=== PATIENT | male | born 1955 | race Two or more races ===

== ENCOUNTER → 2019-03-08 | Day surgery (SDC) | payer BC ==
[~2019-03-08] MED LIST: AMLO5TAB10 PO; FLUT16SP NS; LISI-338 PO; LOVA20TA2 PO; METF500T11 PO; PROPOFOL 40 ML IV ONE; RANI150T2 PO
[2019-03-08] MEDS: IV RINGERS,LACTATED 1000ML 1,000 ML IV SCH (06:32)
[2019-03-08 07:51] VITALS: BP 129/83
== END | disposition home or self-care (01) ==
LOC: ENDOS 06:05
PROVIDERS: ATTEND Internal Medicine Gastroenterology
DX: Z12.11 Encounter for screening for malignant neoplasm of colon (principal); K64.0 First degree hemorrhoids; K57.30 Diverticulosis of large intestine without perforation or abscess without bleeding; Z88.6 Allergy status to analgesic agent; Z86.010 Personal history of colon polyps
CPT/HCPCS: 45378; J2704

== ENCOUNTER 2019-06-13 19:25 | Emergency (ER) | payer BC ==
[~2019-06-13] VITALS: Ht 162.6 cm; Wt 115.5 kg
[~2019-06-13 19:25] MED LIST changes: -PROPOFOL 40 ML IV ONE
--- NOTE | 2019-06-13 19:37 | PHYS DOC ---
Adult General Chief Complaint Chief Complaint: NEURO SYMPTOMS/DEFICITS HPI HPI Patient is a 63 year old male with past medical history significant for hypertension and diabetes who presents secondary to left-sided facial droop. Patient was last known well at midnight last night and woke up with the symptoms that he presents with. His symptoms have not progressed throughout the day. He describes a sensation of mild blurry vision in the left eye and difficulty with closing the left eye and some mild left-sided facial droop. There is been no other numbness tingling or weakness throughout. No difficulty with speech and no headache. Patient has not been sick recently and denies chest pain or shortness of breath. Patient has no numbness or tingling or sensory deficits. Review of Systems Review of Systems All other systems were reviewed and found to be within normal limits, except as documented in this note. Allergies Allergies Allergies Coded Allergies Type Severity Reaction Last Updated Verified codeine Allergy Intermediate 03/08/19 Yes Physical Exam Physical Exam Constitutional: Well developed, well nourished, no acute distress, non-toxic appearance. [] HENT: Normocephalic, atraumatic, bilateral external ears normal, oropharynx moist, no oral exudates, nose normal. [] Eyes: PERRLA, EOMI, conjunctiva normal, no discharge. The left eyelid has mild droop Neck: Normal range of motion, no tenderness, supple, no stridor. [] Cardiovascular:Heart rate regular rhythm, no murmur [] Lungs & Thorax: Bilateral breath sounds clear to auscultation [] Abdomen: Bowel sounds normal, soft, no tenderness, no masses, no pulsatile masses. [] Skin: Warm, dry, no erythema, no rash. [] Back: No tenderness, no CVA tenderness. [] Extremities: No tenderness, no cyanosis, no clubbing, ROM intact, no edema. [] Neurologic: Alert and oriented X 3, normal motor function, normal sensory function, there is mild left-sided facial droop that affects the forehead, cheek, mouth. No other focal deficits are noted Psychologic: Affect normal, judgement normal, mood normal. [] Current Patient Data Lab Values Laboratory Tests Test 06/13/19 19:35 White Blood Count 9.2 x10^3/uL (4.0-11.0) Red Blood Count 5.25 x10^6/uL (4.30-5.70) Hemoglobin 16.4 g/dL (13.0-17.5) Hematocrit 47.1 % (39.0-53.0) Mean Corpuscular Volume 90 fL (79-100) Mean Corpuscular Hemoglobin 31 pg (25-35) Mean Corpuscular Hemoglobin Concent 35 g/dL (31-37) Red Cell Distribution Width 13.3 % (11.5-14.5) Platelet Count 295 x10^3/uL (140-400) Neutrophils (%) (Auto) 60 % (31-73) Lymphocytes (%) (Auto) 22 % (24-48) L Monocytes (%) (Auto) 11 % (0-9) H Eosinophils (%) (Auto) 6 % (0-3) H Basophils (%) (Auto) 1 % (0-3) Neutrophils # (Auto) 5.5 x10^3/uL (1.8-7.7) Lymphocytes # (Auto) 2.0 x10^3/uL (1.0-4.8) Monocytes # (Auto) 1.0 x10^3/uL (0.0-1.1) Eosinophils # (Auto) 0.6 x10^3/uL (0.0-0.7) Basophils # (Auto) 0.1 x10^3/uL (0.0-0.2) Prothrombin Time 12.6 SEC (11.7-14.0) Prothrombin Time INR 1.0 (0.8-1.1) Activated Partial Thromboplast Time 28 SEC (24-38) Sodium Level 142 mmol/L (136-145) Potassium Level 4.1 mmol/L (3.5-5.1) Chloride Level 103 mmol/L (98-107) Carbon Dioxide Level 31 mmol/L (21-32) Anion Gap 8 (6-14) Blood Urea Nitrogen 16 mg/dL (8-26) Creatinine 1.2 mg/dL (0.7-1.3) Estimated GFR (Cockcroft-Gault) 61.6 Glucose Level 136 mg/dL (70-99) H Calcium Level 9.5 mg/dL (8.5-10.1) Laboratory Tests 06/13/19 19:35 Laboratory Tests 06/13/19 19:35 EKG EKG EKG shows a sinus rhythm with a heart rate of 85, no ST elevation and right bundle branch block [] Radiology/Procedures Radiology/Procedures Exam: CT head INDICATION: Left-sided facial droop TECHNIQUE: Sequential axial images through the head were obtained without the administration of IV contrast. Comparisons: None FINDINGS: No focal parenchymal lesion or hemorrhage is identified. There is no midline shift or sulcal effacement. No acute vascular territory infarction is identified. Wang-white distinction is preserved. The ventricular system is within normal limits without compression hydrocephalus. The basal cisterns are well maintained. The visualized portions of the paranasal sinuses and mastoid air cells are well-pneumatized. No acute fractures. IMPRESSION: No acute intracranial abnormality.[] Course & Med Decision Making Course & Med Decision Making Pertinent Labs and Imaging studies reviewed. (See chart for details) 193: This patient is seen for left-sided facial droop. Symptoms are more consistent with Angela's palsy, however given his history I will go ahead and get a CT scan of his head and check basic labs. If work-up is unremarkable will treat him for Angela's palsy. Dragon Disclaimer Dragon Disclaimer This electronic medical record was generated, in whole or in part, using a voice recognition dictation system. Departure Departure Impression: Primary Impression: Angela's palsy Disposition: 01 HOME, SELF-CARE Condition: STABLE Referrals: AUBREE OCAMPO (PCP) Follow up as needed. Patient Instructions: Angela's Palsy Scripts Prednisone (PREDNISONE) 20 Mg Tablet 3 TAB PO DAILY for 7 Days, #21 TAB Prov: ABBEY RODRIGUEZ DO 06/13/19 ABBEY RODRIGUEZ DO Jun 13, 2019 19:37
[2019-06-13 19:47] LABS: BASO # 0.1 x10^3/uL (0.0-0.2); BASO % 1 % (0-3); EOS # 0.6 x10^3/uL (0.0-0.7); EOS % 6 % (0-3); HEMATOCRIT 47.1 % (39.0-53.0); HEMOGLOBIN 16.4 g/dL (13.0-17.5); LYMPH % 22 % (24-48); MEAN CORPUSCULAR HEMOGLOBIN 31 pg (25-35); MEAN CORPUSCULAR HGB CONC 35 g/dL (31-37); MEAN CORPUSCULAR VOLUME 90 fL (79-100); MONO % 11 % (0-9); NEUT # 5.5 x10^3/uL (1.8-7.7); NEUT % 60 % (31-73); PLATELET COUNT 295 x10^3/uL (140-400); RED BLOOD COUNT 5.25 x10^6/uL (4.30-5.70); RED CELL DISTRIBUTION WIDTH 13.3 % (11.5-14.5); WHITE BLOOD COUNT 9.2 x10^3/uL (4.0-11.0)
[2019-06-13 19:54] LABS: PROTHROMBIN TIME PATIENT 12.6 SEC (11.7-14.0)
[2019-06-13 19:58] LABS: CALCIUM 9.5 mg/dL (8.5-10.1); CREATININE 1.2 mg/dL (0.7-1.3); GFR 61.6; POTASSIUM 4.1 mmol/L (3.5-5.1)
--- NOTE | 2019-06-13 20:00 | RAD ---
Exam: CT head INDICATION: Left-sided facial droop TECHNIQUE: Sequential axial images through the head were obtained without the administration of IV contrast. Comparisons: None FINDINGS: No focal parenchymal lesion or hemorrhage is identified. There is no midline shift or sulcal effacement. No acute vascular territory infarction is identified. Wang-white distinction is preserved. The ventricular system is within normal limits without compression hydrocephalus. The basal cisterns are well maintained. The visualized portions of the paranasal sinuses and mastoid air cells are well-pneumatized. No acute fractures. IMPRESSION: No acute intracranial abnormality. Exposure: One or more of the following in the visualized dose reduction techniques were utilized for this examination: 1. Automated exposure control 2. Adjustment of the MA and/or KV according to patient size Use of iterative of reconstructive technique Electronically signed by: Ha Seals MD (06/13/2019 7:58 PM) [id number]
[2019-06-13] MEDS ORDERED: PRED20TA PO (20:09)
[2019-06-13] MEDS ORDERED: predniSONE 20 MG TABLET PO ONE (20:15)
[2019-06-13 20:35] VITALS: BP 150/85
--- NOTE | 2019-06-14 06:19 | EKG ---
[facility] [address] [place] [address] Test Date: 2019-06-13 Test Time: 19:40:35 Pat Name: MERRY KEYS Department: Room: Gender: M Preventive Medicine Officer: : 1955 Requested By: ABBEY RODRIGUEZ Order Number: [id number] Reading MD: Measurements Intervals [place] Rate: 85 P: 38 ME: 130 QRS: -47 QRSD: 126 T: 18 QT: 390 QTc: 464 Interpretive Statements SINUS RHYTHM VENTRICULAR PREMATURE COMPLEX(ES) ABNORMAL LEFT AXIS DEVIATION S1,S2,S3 PATTERN LEFT ANTERIOR FASCICULAR BLOCK RIGHT BUNDLE BRANCH BLOCK BIFASCICULAR BLOCK QRS(T) CONTOUR ABNORMALITY CONSIDER ANTEROSEPTAL MYOCARDIAL DAMAGE ABNORMAL ECG RI6.01 No previous ECG available for comparison
== END 2019-06-13 20:45 | disposition home or self-care (01) ==
LOC: ER 19:25
DX: G51.0 Bell's palsy (principal); Z88.5 Allergy status to narcotic agent
CPT/HCPCS: 36415; 70450; 80048; 84484; 85025; 85610; 85730; 93005; 99285; J7512; 82962; 99284

== ENCOUNTER → 2019-10-02 | Outpatient (CLI) | payer BC ==
[~2019-10-02] MED LIST changes: +METF-658 PO; -METF500T11 PO; +PRED20TA PO
--- NOTE | 2019-10-02 09:05 | RAD ---
PQRS Compliance Statement: One or more of the following individualized dose reduction techniques were utilized for this examination: 1. Automated exposure control 2. Adjustment of the mA and/or kV according to patient size 3. Use of iterative reconstruction technique CT CHEST HIGH RESOLUTION WO 10/02/2019 8:30 AM Indication: Interstitial lung disease COMPARISON: None available. TECHNIQUE: Multiple axial CT images of the chest were obtained without intravenous contrast utilizing high-resolution protocol. Coronal and sagittal reformats are provided. FINDINGS: Thyroid gland is normal in appearance. No pathologically enlarged thoracic lymph nodes are identified. Calcified left hilar lymph node is identified. Heart size within normal limits. Thoracic aorta is normal in course and caliber. Minor coronary artery vascular calcifications are identified. No significant pericardial effusion. Thoracic esophagus is normal in appearance. Mild hepatic steatosis. 4 mm calcified granulomas noted at the left lung base. No suspicious solid noncalcified pulmonary nodules. No pleural effusions, pulmonary vascular congestion or pneumothorax. Central airways are clear. No bronchiectasis. No groundglass changes or traction bronchiectasis. No honeycombing is identified. No significant air trapping. IMPRESSION: No CT findings to suggest acute or chronic interstitial lung disease. Electronically signed by: Danielle Hawthorne MD (10/02/2019 9:02 AM) [facility]
== END | disposition home or self-care (01) ==
LOC: CT 08:32
PROVIDERS: ATTEND Internal Medicine Pulmonary Disease
DX: J84.9 Interstitial pulmonary disease, unspecified (principal); J84.10 Pulmonary fibrosis, unspecified; I25.10 Atherosclerotic heart disease of native coronary artery without angina pectoris; K76.0 Fatty (change of) liver, not elsewhere classified; I89.8 Other specified noninfective disorders of lymphatic vessels and lymph nodes
CPT/HCPCS: 71250

== ENCOUNTER 2021-02-07 09:48 | Observation (INO) | payer BC, MEDICARE ==
[~2021-02-07] VITALS: Ht 170.2 cm; Wt 113.9 kg
[~2021-02-07 09:48] MED LIST changes: +AMLO-186 PO; -AMLO5TAB10 PO; -LISI-338 PO; +LISI5TAB15 PO
[2021-02-07] MEDS ORDERED: NITROGLYCERIN SUBLINGUAL 0.4 MG BOTTLE OF 25. SL ONE (10:14)
[2021-02-07] MEDS ORDERED: ASPIRIN CHEWABLE 81 MG TABLET. PO ONE (10:15)
--- NOTE | 2021-02-07 10:27 | RAD ---
XR CHEST 1V CLINICAL INDICATIONS: Chest pain: COMPARISON: July 05, 2012. Findings: No acute lung infiltrate or pleural effusion or pulmonary edema or lung mass or pneumothora x is seen. The heart size, pulmonary vasculature, mediastinum and both topher are stable. IMPRESSION: No acute radiographic abnormality is seen. Electronically signed by: Femi Dhaliwal MD (02/07/2021 10:25 AM) [id number]
[2021-02-07 10:32] LABS: BASO # 0.1 x10^3/uL (0.0-0.2); BASO % 1 % (0-3); EOS # 0.9 x10^3/uL (0.0-0.7); EOS % 11 % (0-3); HEMATOCRIT 45.4 % (39.0-53.0); HEMOGLOBIN 15.4 g/dL (13.0-17.5); LYMPH # 1.4 x10^3/uL (1.0-4.8); LYMPH % 16 % (24-48); MEAN CORPUSCULAR HEMOGLOBIN 31 pg (25-35); MEAN CORPUSCULAR HGB CONC 34 g/dL (31-37); MEAN CORPUSCULAR VOLUME 91 fL (79-100); MONO # 0.8 x10^3/uL (0.0-1.1); MONO % 9 % (0-9); NEUT # 5.3 x10^3/uL (1.8-7.7); NEUT % 63 % (31-73); PLATELET COUNT 321 x10^3/uL (140-400); RED CELL DISTRIBUTION WIDTH 13.1 % (11.5-14.5); WHITE BLOOD COUNT 8.4 x10^3/uL (4.0-11.0)
[2021-02-07 10:48] LABS: CALCIUM 8.8 mg/dL (8.5-10.1); GFR 75.5; POTASSIUM 3.6 mmol/L (3.5-5.1)
--- NOTE | 2021-02-07 10:49 | PHYS DOC ---
Past Medical History Past Medical History: Diabetes-Type II, GERD, High Cholesterol, Hypertension, Other Additional Past Medical Histor: SLEEP APNEA W C PAP,SKIN INFECTION TO FACE. Past Surgical History: Other Additional Past Surgical Histo: L HIP,COLONOSCOPY Smoking Status: Never Smoker Alcohol Use: None General Adult EDM: Chief Complaint: CHEST PAIN HPI: HPI: Patient is a 65 year old male with history of diabetes type 2, hypertension, hyperlipidemia who presents with chest pain that began 20-30 minutes prior to arrival. Patient's describes the pain as low chest pressure 7/10 nonradiating with associated shortness of breath that extends around his chest. Patient has never had pain like this before. He denies headache, weakness, nausea, vomiting, diaphoresis. Patient denies any inciting events. Patient reports he took his medications today. He has no other complaints at this time. Review of Systems: Review of Systems: Constitutional: Denies fever or chills. Respiratory: See HPI Cardiovascular: See HPI GI: See HPI : Denies dysuria or hematuria. Musculoskeletal: Denies back pain or joint pain. Integument: Denies rash or other skin lesions. Neurologic: See HPI Endocrine: Denies polyuria or polydipsia. Psychological: Denies anxiety or depression. Heart Score: C/O Chest Pain: Yes HEART Score for Chest Pain: HEART Score for Chest Pain Response (Comments) Value History Moderately Suspicious 1 ECG Nonspecific Repolarizatio 1 Age >45 - < 65 1 Risk Factors >3 Risk Factors or Hx CAD 2 Troponin < Normal Limit 0 Total 5 Risk Factors: Risk Factors: DM, HTN, HLD, obesity Risk Scores: Score 0 - 3: 2.5% MACE over next 6 weeks - Discharge Home Score 4 - 6: 20.3% MACE over next 6 weeks - Admit for Clinical Observation Score 7 - 10: 72.7% MACE over next 6 weeks - Early Invasive Strategies Current Medications: Current Medications Medications (Trade) Dose Ordered Sig/Connor Start Time Stop Time Status Last Admin Dose Admin Aspirin (Aspirin Chewable) 324 mg 1X ONCE 02/07/21 10:15 02/07/21 10:16 DC 02/07/21 10:15 324 MG Nitroglycerin (Nitrostat) 0.4 mg STK-MED ONCE 02/07/21 10:14 02/07/21 10:15 DC Allergies: Allergies: Allergies Coded Allergies Type Severity Reaction Last Updated Verified codeine Allergy Intermediate 03/08/19 Yes Physical Exam: PE: Constitutional: Obese, no acute distress, non-toxic appearance. Neck: Normal range of motion, no tenderness, supple, no stridor, no JVD. Cardiovascular: Heart rate regular rhythm, no obvious murmur. Lungs & Thorax: Bilateral breath sounds clear to auscultation. Abdomen: Protuberant abdomen, bowel sounds normal, soft, no tenderness, no masses, no pulsatile masses. Skin: Warm, dry, no erythema, no rash. Extremities: No tenderness, no cyanosis, no clubbing, ROM intact, no edema. Neurologic: Alert and oriented x4, no focal deficits noted. Current Patient Data: Labs: Laboratory Tests Test 02/07/21 10:25 White Blood Count 8.4 x10^3/uL (4.0-11.0) Red Blood Count 5.00 x10^6/uL (4.30-5.70) Hemoglobin 15.4 g/dL (13.0-17.5) Hematocrit 45.4 % (39.0-53.0) Mean Corpuscular Volume 91 fL (79-100) Mean Corpuscular Hemoglobin 31 pg (25-35) Mean Corpuscular Hemoglobin Concent 34 g/dL (31-37) Red Cell Distribution Width 13.1 % (11.5-14.5) Platelet Count 321 x10^3/uL (140-400) Neutrophils (%) (Auto) 63 % (31-73) Lymphocytes (%) (Auto) 16 % (24-48) L Monocytes (%) (Auto) 9 % (0-9) Eosinophils (%) (Auto) 11 % (0-3) H Basophils (%) (Auto) 1 % (0-3) Neutrophils # (Auto) 5.3 x10^3/uL (1.8-7.7) Lymphocytes # (Auto) 1.4 x10^3/uL (1.0-4.8) Monocytes # (Auto) 0.8 x10^3/uL (0.0-1.1) Eosinophils # (Auto) 0.9 x10^3/uL (0.0-0.7) H Basophils # (Auto) 0.1 x10^3/uL (0.0-0.2) Laboratory Tests 02/07/21 10:25 Vital Signs: Vital Signs Date Time Temp Pulse Resp B/P (MAP) Pulse Ox O2 Delivery O2 Flow Rate FiO2 02/07/21 10:25 106 18 151/76 (101) 98 Room Air 02/07/21 10:07 98.5 98.5 EKG: EKG: EKG Interpreted by Dr. Quintero at 1015: Regular rate and rhythm 95 bpm with no ectopic beats. Q waves on inferior leads. EKG largely unchanged from 06/13/2019. EKG Interpreted by Dr. Quintero at 1053: No change from prior. Radiology/Procedures: Radiology/Procedures: PROCEDURE: PORTABLE CHEST 1V XR CHEST 1V CLINICAL INDICATIONS: Chest pain: COMPARISON: July 05, 2012. Findings: No acute lung infiltrate or pleural effusion or pulmonary edema or lung mass or pneumothorax is seen. The heart size, pulmonary vasculature, mediastinum and both topher are stable. IMPRESSION: No acute radiographic abnormality is seen. Electronically signed by: Femi Dhaliwal MD (02/07/2021 10:25 AM) [id number] Course & Med Decision Making: Course & Med Decision Making Pertinent Labs and Imaging studies reviewed. (See chart for details) Patient work-up will include blood work including serial troponin, EKG, chest x- ray with concern for ACS. Patient work-up largely unremarkable, however with heart score of 5, patient w ill be admitted for observation. Dragon Disclaimer: Dragon Disclaimer: This electronic medical record was generated, in whole or in part, using a voice recognition dictation system. Departure Departure Impression: Primary Impression: Chest pain Qualified Codes: R07.89 - Other chest pain Disposition: ADMITTED INPATIENT Admitting Physician: CHUY Ndiaye) Condition: GUARDED Referrals: PASCUAL HOWARD MD (PCP) HEATH VALERIO Feb 07, 2021 10:49
[2021-02-07 11:00] LABS: ALBUMIN 3.3 g/dL (3.4-5.0); ALBUMIN/GLOBULIN RATIO 0.8 (1.0-1.7); MAGNESIUM 1.9 mg/dL (1.8-2.4); TOTAL BILIRUBIN 0.8 mg/dL (0.2-1.0); TOTAL PROTEIN 7.4 g/dL (6.4-8.2)
--- NOTE | 2021-02-07 11:07 | EKG ---
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
--- NOTE | 2021-02-07 11:08 | EKG ---
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
[2021-02-07 12:11] LABS: BILIRUBIN,URINE NEGATIVE (NEG); CLARITY,URINE CLEAR; COLOR,URINE YELLOW; NITRITE,URINE NEGATIVE (NEG); PROTEIN,URINE NEGATIVE (NEG-TRACE)
[2021-02-07] MEDS ORDERED: MAGNESIUM HYDROXIDE 2,400 MG/30 ML ORAL.SUSP. PO PRN (12:15)
[2021-02-07] MEDS ORDERED: LACTULOSE 20 GM/30 ML SOLUTION. PO PRN (12:15)
[2021-02-07] MEDS ORDERED: ZOLPIDEM 5 MG TABLET. PO PRN (12:15)
[2021-02-07] MEDS ORDERED: ACETAMINOPHEN 325 MG TABLET. PO PRN (12:15)
[2021-02-07] MEDS ORDERED: MORPHINE SULFATE 2 MG/ML INJ. IVP PRN (12:15)
[2021-02-07] MEDS ORDERED: NITROGLYCERIN SUBLINGUAL 0.4 MG BOTTLE OF 25. SL PRN ×2 (12:15)
[2021-02-07] MEDS ORDERED: MAG HYDROX/ALUMINUM HYD/SIMETH 30 ML ORAL.SUSP PO PRN (12:15)
[2021-02-07] MEDS ORDERED: 0.9 % SODIUM CHLORIDE 10 ML DISP.SYRIN. IV PRN (12:15)
[2021-02-07] MEDS ORDERED: ONDANSETRON PF 4 MG/2 ML VIAL. IVP PRN (12:15)
[2021-02-07 12:31] LABS: BACTERIA,URINE 0 /HPF (0-FEW); RBC,URINE 0 /HPF (0-2); WBC,URINE 0 /HPF (0-4)
[2021-02-07 13:45] VITALS: BP 160/89
[2021-02-07] MEDS ORDERED: ENOXAPARIN 40 MG/0.4 ML SYRINGE. SQ SCH (14:00)
--- NOTE | 2021-02-07 14:22 | PDOC2 ---
SANDRA NDIAYE DIRECTOR ADVERTISING 02/07/21 1422: CARDIAC CONSULT DATE OF CONSULT Date of Consult DATE: 02/07/21 TIME: 13:39 REASON FOR CONSULT Reason for Consult: Chest pain REFERRING PHYSICIAN Referring Physician: Caren SOURCE Source: Chart review, Patient HISTORY OF PRESENT ILLNESS HISTORY OF PRESENT ILLNESS This is a pleasant 65 yo male admitted for complains of chest pain. He was doing errands with his daughter when he started having sensation of tightening around his lower chest wrapping around and was difficult to breath in. No fever chills or coughing and actaully did some yardwork a week ago and no complains. No exertional SOA or chest pain and today was the first time he has felt the chest pain. No recent falls or injury. Denies any palpitations. No recent pneumonia and has been vaccinated for covid-19. Denies any CAD, arrhythmias, or VTE. He has not had any stress test in the past. He was given x1 NTG in ER and was better after that. PAST MEDICAL HISTORY Cardiovascular: HTN, Hyperlipidemia Pulmonary: Other (JOANA, uses CPAP) CENTRAL NERVOUS SYSTEM: Other (No pertinent history) GI: Diverticulosis, GERD Heme/Onc: No pertinent hx Hepatobiliary: No pertinent hx Psych: No pertinent hx Musculoskeletal: Osteoarthritis Rheumatologic: No pertinent hx Infectious disease: No pertinent hx ENT: No pertinent hx, Other (OSAGE) Renal/: No pertinent hx Endocrine: Diabetes (2) Dermatology: No pertinent hx PAST SURGICAL HISTORY Past Surgical History: Arthroscopy (left RTC repair, right knee repair), Total hip replacement (left), Other (toed suirgery) FAMILY HISTORY Family History: Coronary Artery Disease (father) SOCIAL HISTORY Smoke: No ALCOHOL: other (binge alcohol use on the weekned) Drugs: None Lives: with Family CURRENT MEDICATIONS CURRENT MEDICATIONS Current Medications Medications (Trade) Dose Ordered Sig/Connor Route PRN Reason Start Time Stop Time Status Last Admin Dose Admin Aspirin (Aspirin Chewable) 324 mg 1X ONCE PO 02/07/21 10:15 02/07/21 10:16 DC 02/07/21 10:15 ALLERGIES ALLERGIES: Coded Allergies: codeine (Verified Allergy, Intermediate, 03/08/19) ROS Review of System 14 point ROS evaluated with pertinent positives noted per HPI PHYSICAL EXAM General: Alert, Oriented X3, Cooperative, No acute distress HEENT: Atraumatic, Mucous membr. moist/pink, Other (OSAGE) Lungs: Clear to auscultation, Normal air movement Heart: Regular rate (SR), Normal S1, Normal S2, No murmurs Abdomen: Soft, No tenderness Extremities: No cyanosis, Other (1+ bilateral LE pitting edema) Skin: No breakdown, No significant lesion Neuro: Normal speech, Sensation intact Psych/Mental Status: Mental status NL, Mood NL MUSCULOSKELETAL: Osteoarthritic changes both hands VITALS/I&O VITALS/I&O: Vital Signs Date Time Temp Pulse Resp B/P (MAP) Pulse Ox O2 Delivery O2 Flow Rate FiO2 02/07/21 12:36 70 15 135/68 (90) 95 Room Air 02/07/21 10:07 98.5 98.5 LABS Lab: Laboratory Tests Test 02/07/21 10:25 02/07/21 11:53 White Blood Count 8.4 x10^3/uL (4.0-11.0) Red Blood Count 5.00 x10^6/uL (4.30-5.70) Hemoglobin 15.4 g/dL (13.0-17.5) Hematocrit 45.4 % (39.0-53.0) Mean Corpuscular Volume 91 fL (79-100) Mean Corpuscular Hemoglobin 31 pg (25-35) Mean Corpuscular Hemoglobin Concent 34 g/dL (31-37) Red Cell Distribution Width 13.1 % (11.5-14.5) Platelet Count 321 x10^3/uL (140-400) Neutrophils (%) (Auto) 63 % (31-73) Lymphocytes (%) (Auto) 16 % (24-48) L Monocytes (%) (Auto) 9 % (0-9) Eosinophils (%) (Auto) 11 % (0-3) H Basophils (%) (Auto) 1 % (0-3) Neutrophils # (Auto) 5.3 x10^3/uL (1.8-7.7) Lymphocytes # (Auto) 1.4 x10^3/uL (1.0-4.8) Monocytes # (Auto) 0.8 x10^3/uL (0.0-1.1) Eosinophils # (Auto) 0.9 x10^3/uL (0.0-0.7) H Basophils # (Auto) 0.1 x10^3/uL (0.0-0.2) Sodium Level 137 mmol/L (136-145) Potassium Level 3.6 mmol/L (3.5-5.1) Chloride Level 103 mmol/L (98-107) Carbon Dioxide Level 25 mmol/L (21-32) Anion Gap 9 (6-14) Blood Urea Nitrogen 11 mg/dL (8-26) Creatinine 1.0 mg/dL (0.7-1.3) Estimated GFR (Cockcroft-Gault) 75.5 BUN/Creatinine Ratio 11 (6-20) Glucose Level 183 mg/dL (70-99) H Calcium Level 8.8 mg/dL (8.5-10.1) Magnesium Level 1.9 mg/dL (1.8-2.4) Total Bilirubin 0.8 mg/dL (0.2-1.0) Aspartate Amino Transferase (AST) 48 U/L (15-37) H Alanine Aminotransferase (ALT) 60 U/L (16-63) Alkaline Phosphatase 115 U/L (46-116) Troponin I High Sensitivity 42 ng/L (4-75) EI-Sdh-V-Type Natriuretic Peptide 40 pg/mL (0-124) Total Protein 7.4 g/dL (6.4-8.2) Albumin 3.3 g/dL (3.4-5.0) L Albumin/Globulin Ratio 0.8 (1.0-1.7) L Lipase 181 U/L (73-393) Urine Collection Type Unknown Urine Color Yellow Urine Clarity Clear Urine pH 6.0 (<5.0-8.0) Urine Specific [place] 1.010 (1.000-1.030) Urine Protein Negative mg/dL (NEG-TRACE) Urine Glucose (UA) Negative mg/dL (NEG) Urine Ketones (Stick) Negative mg/dL (NEG) Urine Blood Negative (NEG) Urine Nitrite Negative (NEG) Urine Bilirubin Negative (NEG) Urine Urobilinogen Dipstick 1.0 mg/dL (0.2 mg/dL) Urine Leukocyte Esterase Negative (NEG) Urine RBC 0 /HPF (0-2) Urine WBC 0 /HPF (0-4) Urine Squamous Epithelial Cells Occ /LPF Urine Bacteria 0 /HPF (0-FEW) Laboratory Tests 02/07/21 10:25 Laboratory Tests 02/07/21 10:25 ASSESSMENT/PLAN ASSESSMENT/PLAN 1. Chest pain 2. HTN: initially labile 3. HLP 4. DM2 5. Morbid obesity 6. 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 ASA. Continue BP regimen and statin 2. TTE and FLP. Trend troponin 3. Outpt stress test scheduled 4. Follow up in office on Mar 26 at 9:30 AM JACINDA GARCIA MD 02/07/21 1501: CARDIAC CONSULT ASSESSMENT/PLAN ASSESSMENT/PLAN Patient seen and examined. Agree with PACS SPECIALIST's assessment and plan. Chest pain with atypical features. Myocardial infarction has been ruled out. Check 2D echo to assess LVEF and rule out wall motion abnormalities Plan ischemic evaluation as an outpatient Thank you for your consultation SANDRA NDIAYE APRN Feb 07, 2021 14:22 JACINDA GARCIA MD Feb 07, 2021 15:01
[2021-02-07] MEDS: LISINOPRIL 5 MG TABLET. PO SCH (15:00)
[2021-02-07 19:00] VITALS: BP 153/77
--- NOTE | 2021-02-07 19:35 | PDOC1 ---
History and Physical Date of Admission Date of Admission 02/07/2021 Identification/Chief Complaint Chief Complaint Chest pain Source Source: Patient History of Present Illness History of Present Illness Patient is a 65-year-old gentleman with past medical history of hypertension diabetes and dyslipidemia who was in his usual state of health until the morning of his admission when he presented sudden onset of chest discomfort over the precordial area with no radiation to the jaw or the arm. The patient had some diaphoresis no sensation of impending doom no nausea vomiting and no sensation of impending doom associated with the discomfort. He describes the pain as a pressure like discomfort lasting about 1 hour 7 out of 10 intensity. The milady ent has not had similar episodes in the past when he was evaluated in the emergency department he received nitroglycerin which relieved the pain and he was also given aspirin which seemed to help with the discomfort. We have been asked to admit the patient for further evaluation of his chest discomfort given his heart score of 5. He denies any changes to his recent medications the patient denies dietary transgressions no excess salt no headache no blurred vision no dysphagia odynophagia no palpitations no shortness of breath no cough or sputum production. No PND no lower extremity edema has been reported. At the time my evaluation the patient is laying in bed in no acute distress no chest discomfort has been reported in we have discussed the benign nature of his initial work-up. Cardiology consulted recommendations are greatly appreciated and he will be followed up with serial troponins and reassessment in the a.m. Past Medical History Cardiovascular: HTN, Hyperlipidemia Pulmonary: Other (JOANA, uses CPAP) CENTRAL NERVOUS SYSTEM: Other (No pertinent history) GI: Diverticulosis, GERD Heme/Onc: No pertinent hx Hepatobiliary: No pertinent hx Psych: No pertinent hx Rheumatologic: No pertinent hx Infectious disease: No pertinent hx ENT: No pertinent hx, Other (CHIGNIK LAGOON) Renal/: No pertinent hx Endocrine: Diabetes (2) Dermatology: No pertinent hx Past Surgical History Past Surgical History: Arthroscopy (left RTC repair, right knee repair), Total hip replacement (left), Other (toed suirgery) Family History Family History: Coronary Artery Disease (father) Social History Smoke: No ALCOHOL: none Drugs: None Current Problem List Problem List Problems Medical Problems: (1) Chest pain Status: Acute Current Medications Current Medications Current Medications Medications (Trade) Dose Ordered Sig/Connor Start Time Stop Time Status Last Admin Dose Admin Acetaminophen (Tylenol) 650 mg PRN Q6HRS PRN 02/07/21 12:15 Al Hydroxide/Mg Hydroxide (Mylanta Plus Xs) 30 ml PRN Q4HRS PRN 02/07/21 12:15 Amlodipine Besylate (Norvasc) 5 mg DAILY 02/07/21 15:00 Aspirin (Aspirin Chewable) 324 mg 1X ONCE 02/07/21 10:15 02/07/21 10:16 DC 02/07/21 10:15 324 MG Aspirin (Jaqueline Aspirin) 325 mg DAILYWBKFT 02/08/21 08:00 Atorvastatin Calcium (Lipitor) 5 mg QHS 02/07/21 21:00 Enoxaparin Sodium (Lovenox 40mg Syringe) 40 mg Q24H 02/07/21 14:00 02/07/21 15:01 40 MG Lactulose (Lactulose) 20 gm PRN Q12HR PRN 02/07/21 12:15 Lisinopril (Prinivil) 5 mg DAILY 02/07/21 15:00 Magnesium Hydroxide (Milk Of Magnesia) 2,400 mg PRN Q12HR PRN 02/07/21 12:15 Morphine Sulfate (Morphine Sulfate) 2 mg PRN Q10MIN PRN 02/07/21 12:15 Nitroglycerin (Nitrostat) 0.4 mg PRN Q5MIN PRN 02/07/21 12:15 Ondansetron HCl (Zofran) 4 mg PRN Q6HRS PRN 02/07/21 12:15 Senna/Docusate Sodium (Senna Plus) 1 tab BID 02/07/21 21:00 Sodium Chloride (Normal Saline Flush) 3 ml QSHIFT PRN 02/07/21 12:15 Zolpidem Tartrate (Ambien) 5 mg PRN QHS PRN 02/07/21 12:15 Allergies Allergies Allergies Coded Allergies Type Severity Reaction Last Updated Verified codeine Allergy Intermediate 03/08/19 Yes ROS Review of System CONSTITUTIONAL: No fever or chills EYES: No recent changes SKIN: No rash or itching CARDIOVASCULAR: No chest pain, syncope, palpitations, or edema RESPIRATORY: No SOB or cough GASTROINTESTINAL: No nausea, vomiting or abdominal pain NEUROLOGICAL: No headaches or weakness ENDOCRINE: No cold or heat intolerance GENITOURINARY: No urgency or frequency of urination MUSCULOSKELETAL: No back pain or joint pain LYMPHATICS: No enlarged lymph nodes PSYCHIATRIC: No anxiety or depression Physical Exam Physical Exam GEN.: No apparent distress. Alert and oriented. HEENT: Head is normocephalic, atraumatic NECK: Supple. LUNGS: Clear to auscultation. HEART: RRR, S1, S2 present. Peripheral pulses intact ABDOMEN: Soft, nontender. Positive bowel sounds. EXTREMITIES: Without any cyanosis. NEUROLOGIC: Normal speech, normal tone PSYCHIATRIC: Normal affect, normal mood. SKIN: No ulcerations Vitals Vitals Vital Signs Date Time Temp Pulse Resp B/P (MAP) Pulse Ox O2 Delivery O2 Flow Rate FiO2 02/07/21 13:45 98.5 74 160/89 (112) 98 Room Air 98.5 02/07/21 12:36 15 Labs Labs Laboratory Tests Test 02/07/21 10:25 02/07/21 11:53 02/07/21 13:40 02/07/21 16:25 White Blood Count 8.4 x10^3/uL (4.0-11.0) Red Blood Count 5.00 x10^6/uL (4.30-5.70) Hemoglobin 15.4 g/dL (13.0-17.5) Hematocrit 45.4 % (39.0-53.0) Mean Corpuscular Volume 91 fL (79-100) Mean Corpuscular Hemoglobin 31 pg (25-35) Mean Corpuscular Hemoglobin Concent 34 g/dL (31-37) Red Cell Distribution Width 13.1 % (11.5-14.5) Platelet Count 321 x10^3/uL (140-400) Neutrophils (%) (Auto) 63 % (31-73) Lymphocytes (%) (Auto) 16 % (24-48) Monocytes (%) (Auto) 9 % (0-9) Eosinophils (%) (Auto) 11 % (0-3) Basophils (%) (Auto) 1 % (0-3) Neutrophils # (Auto) 5.3 x10^3/uL (1.8-7.7) Lymphocytes # (Auto) 1.4 x10^3/uL (1.0-4.8) Monocytes # (Auto) 0.8 x10^3/uL (0.0-1.1) Eosinophils # (Auto) 0.9 x10^3/uL (0.0-0.7) Basophils # (Auto) 0.1 x10^3/uL (0.0-0.2) Sodium Level 137 mmol/L (136-145) Potassium Level 3.6 mmol/L (3.5-5.1) Chloride Level 103 mmol/L (98-107) Carbon Dioxide Level 25 mmol/L (21-32) Anion Gap 9 (6-14) Blood Urea Nitrogen 11 mg/dL (8-26) Creatinine 1.0 mg/dL (0.7-1.3) Estimated GFR (Cockcroft-Gault) 75.5 BUN/Creatinine Ratio 11 (6-20) Glucose Level 183 mg/dL (70-99) Calcium Level 8.8 mg/dL (8.5-10.1) Magnesium Level 1.9 mg/dL (1.8-2.4) Total Bilirubin 0.8 mg/dL (0.2-1.0) Aspartate Amino Transf (AST/SGOT) 48 U/L (15-37) Alanine Aminotransferase (ALT/SGPT) 60 U/L (16-63) Alkaline Phosphatase 115 U/L (46-116) Troponin I High Sensitivity 42 ng/L (4-75) 32 ng/L (4-75) 35 ng/L (4-75) HD-Yad-W-Type Natriuretic Peptide 40 pg/mL (0-124) Total Protein 7.4 g/dL (6.4-8.2) Albumin 3.3 g/dL (3.4-5.0) Albumin/Globulin Ratio 0.8 (1.0-1.7) Lipase 181 U/L (73-393) Urine Collection Type Unknown Urine Color Yellow Urine Clarity Clear Urine pH 6.0 (<5.0-8.0) Urine Specific [place] 1.010 (1.000-1.030) Urine Protein Negative mg/dL (NEG-TRACE) Urine Glucose (UA) Negative mg/dL (NEG) Urine Ketones (Stick) Negative mg/dL (NEG) Urine Blood Negative (NEG) Urine Nitrite Negative (NEG) Urine Bilirubin Negative (NEG) Urine Urobilinogen Dipstick 1.0 mg/dL (0.2 mg/dL) Urine Leukocyte Esterase Negative (NEG) Urine RBC 0 /HPF (0-2) Urine WBC 0 /HPF (0-4) Urine Squamous Epithelial Cells Occ /LPF Urine Bacteria 0 /HPF (0-FEW) Test 02/07/21 16:39 Glucose (Fingerstick) 160 mg/dL (70-99) Laboratory Tests Test 02/07/21 10:25 02/07/21 11:53 02/07/21 13:40 02/07/21 16:25 White Blood Count 8.4 x10^3/uL (4.0-11.0) Red Blood Count 5.00 x10^6/uL (4.30-5.70) Hemoglobin 15.4 g/dL (13.0-17.5) Hematocrit 45.4 % (39.0-53.0) Mean Corpuscular Volume 91 fL (79-100) Mean Corpuscular Hemoglobin 31 pg (25-35) Mean Corpuscular Hemoglobin Concent 34 g/dL (31-37) Red Cell Distribution Width 13.1 % (11.5-14.5) Platelet Count 321 x10^3/uL (140-400) Neutrophils (%) (Auto) 63 % (31-73) Lymphocytes (%) (Auto) 16 % (24-48) Monocytes (%) (Auto) 9 % (0-9) Eosinophils (%) (Auto) 11 % (0-3) Basophils (%) (Auto) 1 % (0-3) Neutrophils # (Auto) 5.3 x10^3/uL (1.8-7.7) Lymphocytes # (Auto) 1.4 x10^3/uL (1.0-4.8) Monocytes # (Auto) 0.8 x10^3/uL (0.0-1.1) Eosinophils # (Auto) 0.9 x10^3/uL (0.0-0.7) Basophils # (Auto) 0.1 x10^3/uL (0.0-0.2) Sodium Level 137 mmol/L (136-145) Potassium Level 3.6 mmol/L (3.5-5.1) Chloride Level 103 mmol/L (98-107) Carbon Dioxide Level 25 mmol/L (21-32) Anion Gap 9 (6-14) Blood Urea Nitrogen 11 mg/dL (8-26) Creatinine 1.0 mg/dL (0.7-1.3) Estimated GFR (Cockcroft-Gault) 75.5 BUN/Creatinine Ratio 11 (6-20) Glucose Level 183 mg/dL (70-99) Calcium Level 8.8 mg/dL (8.5-10.1) Magnesium Level 1.9 mg/dL (1.8-2.4) Total Bilirubin 0.8 mg/dL (0.2-1.0) Aspartate Amino Transf (AST/SGOT) 48 U/L (15-37) Alanine Aminotransferase (ALT/SGPT) 60 U/L (16-63) Alkaline Phosphatase 115 U/L (46-116) Troponin I High Sensitivity 42 ng/L (4-75) 32 ng/L (4-75) 35 ng/L (4-75) MS-Amm-A-Type Natriuretic Peptide 40 pg/mL (0-124) Total Protein 7.4 g/dL (6.4-8.2) Albumin 3.3 g/dL (3.4-5.0) Albumin/Globulin Ratio 0.8 (1.0-1.7) Lipase 181 U/L (73-393) Urine Collection Type Unknown Urine Color Yellow Urine Clarity Clear Urine pH 6.0 (<5.0-8.0) Urine Specific [place] 1.010 (1.000-1.030) Urine Protein Negative mg/dL (NEG-TRACE) Urine Glucose (UA) Negative mg/dL (NEG) Urine Ketones (Stick) Negative mg/dL (NEG) Urine Blood Negative (NEG) Urine Nitrite Negative (NEG) Urine Bilirubin Negative (NEG) Urine Urobilinogen Dipstick 1.0 mg/dL (0.2 mg/dL) Urine Leukocyte Esterase Negative (NEG) Urine RBC 0 /HPF (0-2) Urine WBC 0 /HPF (0-4) Urine Squamous Epithelial Cells Occ /LPF Urine Bacteria 0 /HPF (0-FEW) Test 02/07/21 16:39 Glucose (Fingerstick) 160 mg/dL (70-99) VTE Prophylaxis Ordered VTE Prophylaxis Devices: No VTE Pharmacological Prophylaxi: Yes Assessment/Plan Assessment/Plan Chest pain rule out ACS Diabetes mellitus type 2 Essential hypertension Transaminitis most likely secondary to fatty liver infiltration given his body habitus Morbid obesity with a BMI of 51 Plan Serial troponins Telemetry Sliding scale Follow recommendations from cardiology consult DVT prophylaxis with Lovenox Justifications for Admission Other Justification ANGELITO MAO MD Feb 07, 2021 19:35
[2021-02-07] MEDS ORDERED: DEXTROSE 50% 25 GM / 50ML DISP.SYRIN. IV PRN (19:45)
[2021-02-07] MEDS ORDERED: ATORVASTATIN CALCIUM 10 MG TABLET. PO SCH (21:00)
[2021-02-07] MEDS: SENNOSIDES/DOCUSATE 8.6/50MG TABLET. PO SCH (21:00)
[2021-02-07 22:51] VITALS: BP 153/80
[2021-02-08 02:41] VITALS: BP 143/77
[2021-02-08 03:15] LABS: HEMATOCRIT 41.7 % (39.0-53.0); HEMOGLOBIN 14.3 g/dL (13.0-17.5); RED BLOOD COUNT 4.57 x10^6/uL (4.30-5.70); RED CELL DISTRIBUTION WIDTH 13.3 % (11.5-14.5); WHITE BLOOD COUNT 8.7 x10^3/uL (4.0-11.0)
[2021-02-08 03:34] LABS: CALCIUM 8.2 mg/dL (8.5-10.1); CHOLESTEROL/HDL RATIO 3.2; GFR 75.5; MAGNESIUM 1.9 mg/dL (1.8-2.4); POTASSIUM 3.5 mmol/L (3.5-5.1)
[2021-02-08 07:00] VITALS: BP 147/95
[2021-02-08] MEDS ORDERED: ASPIRIN 325 MG TABLET PO SCH (08:00)
[2021-02-08] MEDS: INSULIN LISPRO 300 UNITS/3 ML VIAL. SQ SCH ×2 (08:34→11:56)
[2021-02-08] MEDS: LISINOPRIL 5 MG TABLET. PO SCH (08:52)
[2021-02-08 08:53] VITALS: BP 147/95
[2021-02-08] MEDS: SENNOSIDES/DOCUSATE 8.6/50MG TABLET. PO SCH (08:53)
--- NOTE | 2021-02-08 11:23 | CARD ---
MR#: [id number] Date of Study: 02/07/2021 Ordering Physician: SANDRA NDIAYE, Referring Physician: SANDRA NDIAYE, Tech: Nona Abdi Floydnick, [facility] APPROVED REPORT EXAM: Two-dimensional and M-mode echocardiogram with Doppler and color Doppler. Other Information Quality : AverageHR: 73bpm INDICATION Chest Pain RISK FACTORS Hypertension Hyperlipidemia Diabetes 2D DIMENSIONS RVDd3.2 (2.9-3.5cm)Left Atrium(2D)4.0 (1.6-4.0cm) IVSd1.2 (0.7-1.1cm)Aortic Root(2D)3.3 (2.0-3.7cm) LVDd5.3 (3.9-5.9cm)LVOT Diameter2.1 (1.8-2.4cm) PWd1.2 (0.7-1.1cm)LVDs3.3 (2.5-4.0cm) FS (%) 39.0 %SV98.1 ml Aortic Valve AoV Peak Tulio.121.6cm/sAoV VTI24.1cm AO Peak GR.5.9mmHgLVOT VTI 19.54cm AO Mean GR.3mmHg Mitral Valve MV E Kfocshiv68.1cm/sMV E Peak Gr.4mmHg MV DECEL [id number] A Wyzzhyph28.0cm/s MV E Mean Gr.1mmHgE/A Ratio0.8 TDI Lateral E' P. V8.07cm/sMedial E' P. V6.68cm/s E/Lateral E'6.3E/Medial E'7.6 Tricuspid Valve TR P. [id number]/sRAP [id number] TR Peak Gr.[id number] LEFT VENTRICLE The left ventricle is normal size. There is mild concentric left ventricular hypertrophy. The left ve ntricular systolic function is normal and the ejection fraction is within normal range. The Ejection Fraction is 50-55%. There is normal LV segmental wall motion. Transmitral Doppler flow pattern is Gra de II-pseudonormal filling dynamics. RIGHT VENTRICLE The right ventricle is normal size. There is normal right ventricular wall thickness. The right ventr icular systolic function is normal. ATRIA The left atrium size is normal. The right atrium size is normal. The interatrial septum is intact wit h no evidence for an atrial septal defect or patent foramen ovale as noted on 2-D or Doppler imaging. AORTIC VALVE The aortic valve is normal in structure and function. Doppler and Color Flow revealed no significant aortic regurgitation. There is no significant aortic valvular stenosis. Calculated aortic valve area is 2.87 cm2 with maximum pressure gradient of 9 mmHg and mean pressure gradient of 4 mmHg. MITRAL VALVE The mitral valve is normal in structure and function. There is no evidence of mitral valve prolapse. There is no mitral valve stenosis. Doppler and Color Flow revealed trace mitral valve regurgitation. TRICUSPID VALVE The tricuspid valve is normal in structure and function. Doppler and Color Flow revealed trace tricus pid regurgitation. There is no tricuspid valve stenosis. PULMONIC VALVE The pulmonary valve is normal in structure and function. GREAT VESSELS The aortic root is normal in size. The IVC was not well visualized. PERICARDIAL EFFUSION There is no evidence of significant pericardial effusion. Critical Notification Critical Value: No <Conclusion> The left ventricle is normal size. The left ventricular systolic function is normal and the ejection fraction is within normal range. The Ejection Fraction is 50-55%. There is normal LV segmental wall motion. There is mild concentric left ventricular hypertrophy. Doppler and Color Flow revealed no significant aortic regurgitation. There is no significant aortic valvular stenosis. Doppler and Color Flow revealed trace mitral valve regurgitation. Doppler and Color Flow revealed trace tricuspid regurgitation. Signed by : Noah Moeller MD Electronically Approved : 02/08/2021 11:22:58
--- NOTE | 2021-02-08 11:34 | PDOC3 ---
Discharge Summary Visit Information Date of Admission: Feb 07, 2021 Date of Discharge: Feb 08, 2021 Final Diagnosis Chest pain, angina stable HTN: elevated on admit hyperlipids, on statin DM2 obesity, BMI 39 JOANA: uses CPAP RBBB Problems Medical Problems: (1) Chest pain Status: Acute Brief Hospital Course Allergies Allergies Coded Allergies Type Severity Reaction Last Updated Verified codeine Allergy Intermediate 03/08/19 Yes Vital Signs Vital Signs Date Time Temp Pulse Resp B/P (MAP) Pulse Ox O2 Delivery O2 Flow Rate FiO2 02/08/21 08:53 61 147/95 02/08/21 08:00 Room Air 02/08/21 07:00 97.3 18 97 97.3 Lab Results Laboratory Tests Test 02/07/21 10:25 02/07/21 11:53 02/07/21 13:40 02/07/21 16:25 White Blood Count 8.4 x10^3/uL (4.0-11.0) Red Blood Count 5.00 x10^6/uL (4.30-5.70) Hemoglobin 15.4 g/dL (13.0-17.5) Hematocrit 45.4 % (39.0-53.0) Mean Corpuscular Volume 91 fL (79-100) Mean Corpuscular Hemoglobin 31 pg (25-35) Mean Corpuscular Hemoglobin Concent 34 g/dL (31-37) Red Cell Distribution Width 13.1 % (11.5-14.5) Platelet Count 321 x10^3/uL (140-400) Neutrophils (%) (Auto) 63 % (31-73) Lymphocytes (%) (Auto) 16 % (24-48) Monocytes (%) (Auto) 9 % (0-9) Eosinophils (%) (Auto) 11 % (0-3) Basophils (%) (Auto) 1 % (0-3) Neutrophils # (Auto) 5.3 x10^3/uL (1.8-7.7) Lymphocytes # (Auto) 1.4 x10^3/uL (1.0-4.8) Monocytes # (Auto) 0.8 x10^3/uL (0.0-1.1) Eosinophils # (Auto) 0.9 x10^3/uL (0.0-0.7) Basophils # (Auto) 0.1 x10^3/uL (0.0-0.2) Sodium Level 137 mmol/L (136-145) Potassium Level 3.6 mmol/L (3.5-5.1) Chloride Level 103 mmol/L (98-107) Carbon Dioxide Level 25 mmol/L (21-32) Anion Gap 9 (6-14) Blood Urea Nitrogen 11 mg/dL (8-26) Creatinine 1.0 mg/dL (0.7-1.3) Estimated GFR (Cockcroft-Gault) 75.5 BUN/Creatinine Ratio 11 (6-20) Glucose Level 183 mg/dL (70-99) Calcium Level 8.8 mg/dL (8.5-10.1) Magnesium Level 1.9 mg/dL (1.8-2.4) Total Bilirubin 0.8 mg/dL (0.2-1.0) Aspartate Amino Transf (AST/SGOT) 48 U/L (15-37) Alanine Aminotransferase (ALT/SGPT) 60 U/L (16-63) Alkaline Phosphatase 115 U/L (46-116) Troponin I High Sensitivity 42 ng/L (4-75) 32 ng/L (4-75) 35 ng/L (4-75) SJ-Toj-X-Type Natriuretic Peptide 40 pg/mL (0-124) Total Protein 7.4 g/dL (6.4-8.2) Albumin 3.3 g/dL (3.4-5.0) Albumin/Globulin Ratio 0.8 (1.0-1.7) Lipase 181 U/L (73-393) Urine Collection Type Unknown Urine Color Yellow Urine Clarity Clear Urine pH 6.0 (<5.0-8.0) Urine Specific [place] 1.010 (1.000-1.030) Urine Protein Negative mg/dL (NEG-TRACE) Urine Glucose (UA) Negative mg/dL (NEG) Urine Ketones (Stick) Negative mg/dL (NEG) Urine Blood Negative (NEG) Urine Nitrite Negative (NEG) Urine Bilirubin Negative (NEG) Urine Urobilinogen Dipstick 1.0 mg/dL (0.2 mg/dL) Urine Leukocyte Esterase Negative (NEG) Urine RBC 0 /HPF (0-2) Urine WBC 0 /HPF (0-4) Urine Squamous Epithelial Cells Occ /LPF Urine Bacteria 0 /HPF (0-FEW) Test 02/07/21 16:39 02/07/21 20:12 02/08/21 03:00 02/08/21 08:19 Glucose (Fingerstick) 160 mg/dL (70-99) 175 mg/dL (70-99) 233 mg/dL (70-99) White Blood Count 8.7 x10^3/uL (4.0-11.0) Red Blood Count 4.57 x10^6/uL (4.30-5.70) Hemoglobin 14.3 g/dL (13.0-17.5) Hematocrit 41.7 % (39.0-53.0) Mean Corpuscular Volume 91 fL (79-100) Mean Corpuscular Hemoglobin 31 pg (25-35) Mean Corpuscular Hemoglobin Concent 34 g/dL (31-37) Red Cell Distribution Width 13.3 % (11.5-14.5) Platelet Count 300 x10^3/uL (140-400) Sodium Level 138 mmol/L (136-145) Potassium Level 3.5 mmol/L (3.5-5.1) Chloride Level 104 mmol/L (98-107) Carbon Dioxide Level 28 mmol/L (21-32) Anion Gap 6 (6-14) Blood Urea Nitrogen 15 mg/dL (8-26) Creatinine 1.0 mg/dL (0.7-1.3) Estimated GFR (Cockcroft-Gault) 75.5 Glucose Level 124 mg/dL (70-99) Calcium Level 8.2 mg/dL (8.5-10.1) Magnesium Level 1.9 mg/dL (1.8-2.4) Triglycerides Level 117 mg/dL (0-150) Cholesterol Level 123 mg/dL (0-200) LDL Cholesterol, Calculated 62 mg/dL (0-100) VLDL Cholesterol, Calculated 23 mg/dL (0-40) Non-HDL Cholesterol Calculated 85 mg/dL (0-129) HDL Cholesterol 38 mg/dL (40-60) Cholesterol/HDL Ratio 3.2 Laboratory Tests Test 02/07/21 11:53 02/07/21 13:40 02/07/21 16:25 02/07/21 16:39 Urine Collection Type Unknown Urine Color Yellow Urine Clarity Clear Urine pH 6.0 (<5.0-8.0) Urine Specific [place] 1.010 (1.000-1.030) Urine Protein Negative mg/dL (NEG-TRACE) Urine Glucose (UA) Negative mg/dL (NEG) Urine Ketones (Stick) Negative mg/dL (NEG) Urine Blood Negative (NEG) Urine Nitrite Negative (NEG) Urine Bilirubin Negative (NEG) Urine Urobilinogen Dipstick 1.0 mg/dL (0.2 mg/dL) Urine Leukocyte Esterase Negative (NEG) Urine RBC 0 /HPF (0-2) Urine WBC 0 /HPF (0-4) Urine Squamous Epithelial Cells Occ /LPF Urine Bacteria 0 /HPF (0-FEW) Troponin I High Sensitivity 32 ng/L (4-75) 35 ng/L (4-75) Glucose (Fingerstick) 160 mg/dL (70-99) Test 02/07/21 20:12 02/08/21 03:00 02/08/21 08:19 Glucose (Fingerstick) 175 mg/dL (70-99) 233 mg/dL (70-99) White Blood Count 8.7 x10^3/uL (4.0-11.0) Red Blood Count 4.57 x10^6/uL (4.30-5.70) Hemoglobin 14.3 g/dL (13.0-17.5) Hematocrit 41.7 % (39.0-53.0) Mean Corpuscular Volume 91 fL (79-100) Mean Corpuscular Hemoglobin 31 pg (25-35) Mean Corpuscular Hemoglobin Concent 34 g/dL (31-37) Red Cell Distribution Width 13.3 % (11.5-14.5) Platelet Count 300 x10^3/uL (140-400) Sodium Level 138 mmol/L (136-145) Potassium Level 3.5 mmol/L (3.5-5.1) Chloride Level 104 mmol/L (98-107) Carbon Dioxide Level 28 mmol/L (21-32) Anion Gap 6 (6-14) Blood Urea Nitrogen 15 mg/dL (8-26) Creatinine 1.0 mg/dL (0.7-1.3) Estimated GFR (Cockcroft-Gault) 75.5 Glucose Level 124 mg/dL (70-99) Calcium Level 8.2 mg/dL (8.5-10.1) Magnesium Level 1.9 mg/dL (1.8-2.4) Triglycerides Level 117 mg/dL (0-150) Cholesterol Level 123 mg/dL (0-200) LDL Cholesterol, Calculated 62 mg/dL (0-100) VLDL Cholesterol, Calculated 23 mg/dL (0-40) Non-HDL Cholesterol Calculated 85 mg/dL (0-129) HDL Cholesterol 38 mg/dL (40-60) Cholesterol/HDL Ratio 3.2 Brief Hospital Course Mr. Antonio is a 65 old male, admit with chest pain, angina, ACS ruled out Patient seen and examined. Agree with [employer]'s assessment and plan. Chest pain with atypical features. Myocardial infarction has been ruled out. Check 2D echo to assess LVEF and rule out wall motion abnormalities Plan ischemic evaluation as an outpatient Thank you for your consultation Discharge Information Condition at Discharge: Improved Follow Up: Weeks Disposition/Orders: D/C to Home Scheduled Amlodipine Besylate (Amlodipine Besylate) 5 Mg Tablet, 5 MG PO DAILY for BP, (Reported) Entered as Reported by: RENE BLAKELY on 03/08/19620 Last Action: Continued on 02/07/211417 by SANDRA NDIAYE Fluticasone Propionate (Fluticasone Propionate Nasal Pand[place]) 16 Gm Pand[place].susp, 2 SPRAY NS DAILY for ALLERGIES, #1 Ref 11 (Reported) Entered as Reported by: RENE BLAKELY on 03/08/19620 Lisinopril (Lisinopril) 5 Mg Tablet, 5 MG PO DAILY for FOR HYPERTENSION, #30 Ref 0 (Reported) Entered as Reported by: RENE BLAKELY on 03/08/19620 Last Action: Continued on 02/07/211417 by SANDRA NDIAYE Lovastatin (Lovastatin) 20 Mg Tablet, 20 MG PO HS for CHOLESTEROL, (Reported) Entered as Reported by: RENE BLAKELY on 03/08/19620 Last Action: Converted on 02/07/211417 by SANDRA NDIAYE Metformin Hcl (Metformin Hcl Er) 500 Mg Tab.er.24h, 500 MG PO DAILYWBKFT for ANTI-DIABETIC, Ref 0 (Reported) Entered as Reported by: RENE BLAKELY on 03/08/19620 Ranitidine Hcl (Ranitidine Hcl) 150 Mg Tablet, 150 MG PO BID for REFLUX, (Reported) Entered as Reported by: RENE BLAKELY on 03/08/19 0621 Discontinued Medications Prednisone (Prednisone) 20 Mg Tablet, 3 TAB PO DAILY for 7 Days, #21 Prescribed by: ABBEY RODRIGUEZ DO on 06/13/192008 Patient Instructions Patient Instructions face to face f/u Tammy Torres start aspirin 325mg daily Justicifation of Admission Dx: Justifications for Admission: Justification of Admission Dx: No (obs) KYRA DURANT MD Feb 08, 2021 11:34
--- NOTE | 2021-02-08 13:28 | PDOC ---
PROGRESS NOTES Date of Service DATE: 02/08/21 TIME: 13:26 Subjective Subjective Patient seen and examined Objective Objective Vital Signs Date Time Temp Pulse Resp B/P (MAP) Pulse Ox O2 Delivery O2 Flow Rate FiO2 02/08/21 08:53 61 147/95 02/08/21 08:00 Room Air 02/08/21 07:00 97.3 18 97 97.3 Intake and Output 02/08/21 07:00 Intake Total 800 ml Balance 800 ml Intake Oral 800 ml # Voids 2 Physical Exam Abdomen: Normal bowel sounds Heart: Regular rate General: No acute distress Lungs: Clear to auscultation Assessment Assessment Problems Medical Problems: (1) Chest pain Status: Acute Chest pain. Resolved. No significant elevation in troponin. Echocardiogram shows normal LV systolic function. Continue medical treatment including as pirin. Outpatient ischemia work-up and follow-up. HTN: Improved. Continue present treatment. HLP. Statin. 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 Labs Laboratory Tests Test 02/07/21 10:25 02/07/21 11:53 02/07/21 13:40 02/07/21 16:25 White Blood Count 8.4 x10^3/uL (4.0-11.0) Red Blood Count 5.00 x10^6/uL (4.30-5.70) Hemoglobin 15.4 g/dL (13.0-17.5) Hematocrit 45.4 % (39.0-53.0) Mean Corpuscular Volume 91 fL (79-100) Mean Corpuscular Hemoglobin 31 pg (25-35) Mean Corpuscular Hemoglobin Concent 34 g/dL (31-37) Red Cell Distribution Width 13.1 % (11.5-14.5) Platelet Count 321 x10^3/uL (140-400) Neutrophils (%) (Auto) 63 % (31-73) Lymphocytes (%) (Auto) 16 % (24-48) Monocytes (%) (Auto) 9 % (0-9) Eosinophils (%) (Auto) 11 % (0-3) Basophils (%) (Auto) 1 % (0-3) Neutrophils # (Auto) 5.3 x10^3/uL (1.8-7.7) Lymphocytes # (Auto) 1.4 x10^3/uL (1.0-4.8) Monocytes # (Auto) 0.8 x10^3/uL (0.0-1.1) Eosinophils # (Auto) 0.9 x10^3/uL (0.0-0.7) Basophils # (Auto) 0.1 x10^3/uL (0.0-0.2) Sodium Level 137 mmol/L (136-145) Potassium Level 3.6 mmol/L (3.5-5.1) Chloride Level 103 mmol/L (98-107) Carbon Dioxide Level 25 mmol/L (21-32) Anion Gap 9 (6-14) Blood Urea Nitrogen 11 mg/dL (8-26) Creatinine 1.0 mg/dL (0.7-1.3) Estimated GFR (Cockcroft-Gault) 75.5 BUN/Creatinine Ratio 11 (6-20) Glucose Level 183 mg/dL (70-99) Calcium Level 8.8 mg/dL (8.5-10.1) Magnesium Level 1.9 mg/dL (1.8-2.4) Total Bilirubin 0.8 mg/dL (0.2-1.0) Aspartate Amino Transf (AST/SGOT) 48 U/L (15-37) Alanine Aminotransferase (ALT/SGPT) 60 U/L (16-63) Alkaline Phosphatase 115 U/L (46-116) Troponin I High Sensitivity 42 ng/L (4-75) 32 ng/L (4-75) 35 ng/L (4-75) LC-Jrc-D-Type Natriuretic Peptide 40 pg/mL (0-124) Total Protein 7.4 g/dL (6.4-8.2) Albumin 3.3 g/dL (3.4-5.0) Albumin/Globulin Ratio 0.8 (1.0-1.7) Lipase 181 U/L (73-393) Urine Collection Type Unknown Urine Color Yellow Urine Clarity Clear Urine pH 6.0 (<5.0-8.0) Urine Specific [place] 1.010 (1.000-1.030) Urine Protein Negative mg/dL (NEG-TRACE) Urine Glucose (UA) Negative mg/dL (NEG) Urine Ketones (Stick) Negative mg/dL (NEG) Urine Blood Negative (NEG) Urine Nitrite Negative (NEG) Urine Bilirubin Negative (NEG) Urine Urobilinogen Dipstick 1.0 mg/dL (0.2 mg/dL) Urine Leukocyte Esterase Negative (NEG) Urine RBC 0 /HPF (0-2) Urine WBC 0 /HPF (0-4) Urine Squamous Epithelial Cells Occ /LPF Urine Bacteria 0 /HPF (0-FEW) Test 02/07/21 16:39 02/07/21 20:12 02/08/21 03:00 02/08/21 08:19 Glucose (Fingerstick) 160 mg/dL (70-99) 175 mg/dL (70-99) 233 mg/dL (70-99) White Blood Count 8.7 x10^3/uL (4.0-11.0) Red Blood Count 4.57 x10^6/uL (4.30-5.70) Hemoglobin 14.3 g/dL (13.0-17.5) Hematocrit 41.7 % (39.0-53.0) Mean Corpuscular Volume 91 fL (79-100) Mean Corpuscular Hemoglobin 31 pg (25-35) Mean Corpuscular Hemoglobin Concent 34 g/dL (31-37) Red Cell Distribution Width 13.3 % (11.5-14.5) Platelet Count 300 x10^3/uL (140-400) Sodium Level 138 mmol/L (136-145) Potassium Level 3.5 mmol/L (3.5-5.1) Chloride Level 104 mmol/L (98-107) Carbon Dioxide Level 28 mmol/L (21-32) Anion Gap 6 (6-14) Blood Urea Nitrogen 15 mg/dL (8-26) Creatinine 1.0 mg/dL (0.7-1.3) Estimated GFR (Cockcroft-Gault) 75.5 Glucose Level 124 mg/dL (70-99) Calcium Level 8.2 mg/dL (8.5-10.1) Magnesium Level 1.9 mg/dL (1.8-2.4) Triglycerides Level 117 mg/dL (0-150) Cholesterol Level 123 mg/dL (0-200) LDL Cholesterol, Calculated 62 mg/dL (0-100) VLDL Cholesterol, Calculated 23 mg/dL (0-40) Non-HDL Cholesterol Calculated 85 mg/dL (0-129) HDL Cholesterol 38 mg/dL (40-60) Cholesterol/HDL Ratio 3.2 Test 02/08/21 11:55 Glucose (Fingerstick) 131 mg/dL (70-99) Laboratory Tests Test 02/07/21 13:40 02/07/21 16:25 02/07/21 16:39 02/07/21 20:12 Troponin I High Sensitivity 32 ng/L (4-75) 35 ng/L (4-75) Glucose (Fingerstick) 160 mg/dL (70-99) 175 mg/dL (70-99) Test 02/08/21 03:00 02/08/21 08:19 02/08/21 11:55 White Blood Count 8.7 x10^3/uL (4.0-11.0) Red Blood Count 4.57 x10^6/uL (4.30-5.70) Hemoglobin 14.3 g/dL (13.0-17.5) Hematocrit 41.7 % (39.0-53.0) Mean Corpuscular Volume 91 fL (79-100) Mean Corpuscular Hemoglobin 31 pg (25-35) Mean Corpuscular Hemoglobin Concent 34 g/dL (31-37) Red Cell Distribution Width 13.3 % (11.5-14.5) Platelet Count 300 x10^3/uL (140-400) Sodium Level 138 mmol/L (136-145) Potassium Level 3.5 mmol/L (3.5-5.1) Chloride Level 104 mmol/L (98-107) Carbon Dioxide Level 28 mmol/L (21-32) Anion Gap 6 (6-14) Blood Urea Nitrogen 15 mg/dL (8-26) Creatinine 1.0 mg/dL (0.7-1.3) Estimated GFR (Cockcroft-Gault) 75.5 Glucose Level 124 mg/dL (70-99) Calcium Level 8.2 mg/dL (8.5-10.1) Magnesium Level 1.9 mg/dL (1.8-2.4) Triglycerides Level 117 mg/dL (0-150) Cholesterol Level 123 mg/dL (0-200) LDL Cholesterol, Calculated 62 mg/dL (0-100) VLDL Cholesterol, Calculated 23 mg/dL (0-40) Non-HDL Cholesterol Calculated 85 mg/dL (0-129) HDL Cholesterol 38 mg/dL (40-60) Cholesterol/HDL Ratio 3.2 Glucose (Fingerstick) 233 mg/dL (70-99) 131 mg/dL (70-99) Medications Current Medications Aspirin (Aspirin Chewable) 324 mg 1X ONCE PO Last administered on 02/07/21at 10:15; Start 02/07/21 at 10:15; Stop 02/07/21 at 10:16; Status DC Nitroglycerin (Nitrostat) 0.4 mg STK-MED ONCE SL ; Start 02/07/21 at 10:14; Stop 02/07/21 at 10:15; Status DC Nitroglycerin (Nitrostat) 0.4 mg PRN Q5MIN PRN SL CHEST PAIN; Start 02/07/21 at 12:15; Stop 02/07/21 at 12:25; Status DC Aspirin (Jaqueline Aspirin) 325 mg DAILYWBKFT PO Last administered on 02/08/21at 08:53; Start 02/08/21 at 08:00; Stop 02/08/21 at 12:13; Status DC Nitroglycerin (Nitrostat) 0.4 mg PRN Q5MIN PRN SL CHEST PAIN; Start 02/07/21 at 12:15; Stop 02/08/21 at 12:13; Status DC Morphine Sulfate (Morphine Sulfate) 2 mg PRN Q10MIN PRN IVP CHEST PAIN; Start 02/07/21 at 12:15; Stop 02/08/21 at 12:13; Status DC Acetaminophen (Tylenol) 650 mg PRN Q6HRS PRN PO MILD PAIN / TEMP > 100.3'F; Start 02/07/21 at 12:15; Stop 02/08/21 at 12:13; Status DC Al Hydroxide/Mg Hydroxide (Mylanta Plus Xs) 30 ml PRN Q4HRS PRN PO HEARTBURN / GAS; Start 02/07/21 at 12:15; Stop 02/08/21 at 12:13; Status DC Ondansetron HCl (Zofran) 4 mg PRN Q6HRS PRN IVP NAUSEA/VOMITING; Start at 12:15; Stop 02/08/21 at 12:13; Status DC Zolpidem Tartrate (Ambien) 5 mg PRN QHS PRN PO INSOMNIA; Start 02/07/21 at 12 :15; Stop 02/08/21 at 12:13; Status DC Enoxaparin Sodium (Lovenox 40mg Syringe) 40 mg Q24H SQ Last administered on 02/07/21at 15:01; Start 02/07/21 at 14:00; Stop 02/08/21 at 12:13; Status DC Sodium Chloride (Normal Saline Flush) 3 ml QSHIFT PRN IV AFTER MEDS AND BLOOD DRAWS; Start 02/07/21 at 12:15; Stop 02/08/21 at 12:13; Status DC Senna/Docusate Sodium (Senna Plus) 1 tab BID PO Last administered on 02/08/21at 08:53; Start 02/07/21 at 21:00; Stop 02/08/21 at 12:13; Status DC Magnesium Hydroxide (Milk Of Magnesia) 2,400 mg PRN Q12HR PRN PO CONSTIPATION; Start 02/07/21 at 12:15; Stop 02/08/21 at 12:13; Status DC Lactulose (Lactulose) 20 gm PRN Q12HR PRN PO CONSTIPATION; Start 02/07/21 at 12:15; Stop 02/08/21 at 12:13; Status DC Amlodipine Besylate (Norvasc) 5 mg DAILY PO Last administered on 02/08/21at 08:53; Start 02/07/21 at 15:00; Stop 02/08/21 at 12:13; Status DC Lisinopril (Prinivil) 5 mg DAILY PO Last administered on 02/08/21at 08:52; Start 02/07/21 at 15:00; Stop 02/08/21 at 12:13; Status DC Atorvastatin Calcium (Lipitor) 5 mg QHS PO Last administered on 02/07/21at 21:00; Start 02/07/21 at 21:00; Stop 02/08/21 at 12:13; Status DC Insulin Human Lispro (HumaLOG) 0-5 UNITS TIDWMEALS SQ Last administered on 02/08/21at 08:34; Start 02/08/21 at 08:00; Stop 02/08/21 at 12:13; Status DC Dextrose (Dextrose 50%-Water Syringe) 12.5 gm PRN Q15MIN PRN IV SEE COMMENTS; Start 02/07/21 at 19:45; Stop 02/08/21 at 12:13; Status DC Active Scripts Active Reported Fluticasone Propionate Nasal [place] (Fluticasone Propionate) 16 Gm Clinton.susp 2 [place] NS DAILY Ranitidine Hcl 150 Mg Tablet 150 Mg PO BID Lovastatin 20 Mg Tablet 20 Mg PO HS Amlodipine Besylate 5 Mg Tablet 5 Mg PO DAILY Lisinopril 5 Mg Tablet 5 Mg PO DAILY Metformin Hcl Er (Metformin Hcl) 500 Mg Tab.er.24h 500 Mg PO DAILYWBKFT Vitals/I & O Vital Sign - Last 24 Hours 02/07/21 02/07/21 02/07/21 02/07/21 13:45 13:45 19:00 20:00 Temp 98.5 98.3 98.5 98.3 Pulse 74 80 Resp 18 B/P (MAP) 160/89 (112) 153/77 (102) Pulse Ox 98 97 O2 Delivery Room Air Room Air Room Air Room Air 02/07/21 02/08/21 02/08/21 02/08/21 22:51 02:41 07:00 08:00 Temp 98.2 97.2 97.3 98.2 97.2 97.3 Pulse 80 62 61 Resp 18 16 18 B/P (MAP) 153/80 (104) 143/77 (99) 147/95 (112) Pulse Ox 96 97 97 O2 Delivery Room Air BiPAP/CPAP Room Air Room Air 02/08/21 02/08/21 08:52 08:53 Pulse 75 61 B/P (MAP) 147/95 147/95 Intake and Output 02/07/21 02/07/21 02/08/21 15:00 23:00 07:00 Intake Total 600 ml 200 ml Balance 600 ml 200 ml Justifications for Admission Other Justification SUSY BOSS MD Feb 08, 2021 13:28
== END 2021-02-08 12:10 | disposition home or self-care (01) ==
LOC: ER 10:04 → 6 SOUTH 12:11
PROVIDERS: ADMIT Internal Medicine; ATTEND Internal Medicine
DX: R07.89 Other chest pain (principal); D72.828 Other elevated white blood cell count; I10 Essential (primary) hypertension; I20.0 Unstable angina; E11.9 Type 2 diabetes mellitus without complications; E78.5 Hyperlipidemia, unspecified; R74.01 Elevation of levels of liver transaminase levels; E66.01 Morbid (severe) obesity due to excess calories; E78.00 Pure hypercholesterolemia, unspecified; G47.33 Obstructive sleep apnea (adult) (pediatric); I20.9 Angina pectoris, unspecified; I45.10 Unspecified right bundle-branch block; I45.2 Bifascicular block; M19.90 Unspecified osteoarthritis, unspecified site; K21.9 Gastro-esophageal reflux disease without esophagitis; K57.90 Diverticulosis of intestine, part unspecified, without perforation or abscess without bleeding; K76.0 Fatty (change of) liver, not elsewhere classified; Z68.43 Body mass index [BMI] 50.0-59.9, adult; Z96.642 Presence of left artificial hip joint; Z79.899 Other long term (current) drug therapy; Z98.890 Other specified postprocedural states
CPT/HCPCS: 36415; 71045; 80048; 80053; 80061; 81001; 82962; 83690; 83735; 83880; 84484; 85025; 85027; 93005; 93306; 96374; 99285; G0378; J1650; J1815; 96372; G0379